=== PATIENT | male | born 1965 | race Caucasian/White ===

== ENCOUNTER → 2024-11-04 14:19 | Outpatient (REF) | payer OTHER, SELFPAY | LOC: MRI 3T 14:19 | PROVIDERS: ATTENDING PHYSICIAN Specialist; FAMILY PHYSICIAN Internal Medicine | DX: M54.16 Radiculopathy, lumbar region (principal) | CPT/HCPCS: 72148 ==

== ENCOUNTER 2025-02-02 05:58 | Outpatient (RCR) | payer OTHER, SELFPAY | END 2025-02-02 23:59 | disposition home or self-care (01) | LOC: RPT 05:58 | PROVIDERS: ATTENDING PHYSICIAN Physician Assistant; FAMILY PHYSICIAN Internal Medicine | DX: M54.16 Radiculopathy, lumbar region (principal); Z73.6 Limitation of activities due to disability | CPT/HCPCS: 97110; 97162 ==

== ENCOUNTER 2025-02-25 15:08 | Outpatient (RCR) | payer OTHER, SELFPAY | END 2025-02-25 23:59 | disposition home or self-care (01) | LOC: RPT 15:08 | PROVIDERS: ATTENDING PHYSICIAN Physician Assistant; FAMILY PHYSICIAN Internal Medicine | DX: M54.16 Radiculopathy, lumbar region (principal); Z73.6 Limitation of activities due to disability | CPT/HCPCS: 97110; 97140 ==

== ENCOUNTER 2025-03-10 15:06 | Outpatient (RCR) | payer OTHER, SELFPAY | END 2025-03-11 12:58 | disposition home or self-care (01) | LOC: RPT 15:06 | PROVIDERS: ATTENDING PHYSICIAN Physician Assistant; FAMILY PHYSICIAN Internal Medicine | DX: M54.16 Radiculopathy, lumbar region (principal); Z73.6 Limitation of activities due to disability | CPT/HCPCS: 97110; 97140 ==

== ENCOUNTER 2025-08-01 19:30 | Emergency (ER) | payer OTHER, SELFPAY ==
[2025-08-01] VITALS (8 sets, daily range): BP systolic 68–152; BP diastolic 53–98
[2025-08-01] MEDS: MOTRIN 600 MG PO (23:20)
[2025-08-02] VITALS: BP 121/89
--- NOTE | 2025-08-02 01:14 | ED.GENMED ---
History of Present Illness
General
Chief Complaint: Musculo-Skeletal Complaint
Source: patient
Exam Limitations: none
Time Seen by Provider: 08/01/25 22:24
Nursing documentation reviewed up to this point in time: agreed with
History of Present Illness
History of Present Illness:
Patient is a 59-year-old male who presents to the emergency department with left knee injury. Patient states he was walking down a few steps while at a wedding earlier this evening when he missed the final step and his left knee bent back
forcefully. He heard a 'pop'. He states that he immediately noticed a bulge just above his knee and was unable to bear weight. He had no pain initially however has since developed a tightness/pain sensation throughout his left thigh. Patient
states he is having difficulty with extension of his left knee and is unable to raise his left leg off the bed.
He denies any numbness/tingling in the left lower extremity. He denies any fall or impact on his knee.
He did not hit his head or sustain any other injuries. He is not on any oral anticoagulation.
Past History
Past History
ED Past Medical History: Other (HIV positive)
Social History
Tobacco: Non-smoker
Alcohol: None
Drug: None
Review of Systems
Review of Systems
Allergies reviewed?: Yes
All Other Systems: ROS reviewed and negative except as documented in HPI and ROS
Phy Exam
Physical Exam
Physical Exam:
Vitals: Hypertensive on arrival, otherwise vital signs stable. Afebrile
General: Patient is in no distress.
Skin: Warm and dry, no rashes or lesions
Head: Normocephalic, atraumatic
Throat: Protecting airway
Neck: Normal ROM, no cervical spine tenderness
Cardiac: Regular rate
Pulm: No apparent respiratory distress
Abdomen: Nondistended
Extremities: Palpable deformity of left quadriceps tendon just proximal to knee. Significant left knee joint effusion. Mild tenderness in left anterior thigh. Compartments soft. Normal sensation with palpable left DP and PT pulses. Capillary
refill WNL. No bony tenderness of left knee or left lower extremity. Limited complete extent of left knee and unable to perform straight leg raise on left side
Neuro: Grossly intact
Psychiatric: Normal affect.
Course
Orders/Labs/Results
Orders:
Orders
08/01/25 23:13
Ibuprofen [Motrin] 600 mg PO NOW STA
08/01/25 23:49
Crutches-Treatment ONCE
Knee Immobilizer Left-Treatmen ONCE
Vital Signs
Initial and Last Documented VS:
Initial Vital Signs
Temp Pulse Resp BP Pulse Ox
98.3 F 80 16 152/98 95
08/01/25 19:32 08/01/25 19:32 08/01/25 19:32 08/01/25 19:32 08/01/25 19:32
Last Documented Vital Signs
Temp Pulse Resp BP Pulse Ox
98.3 F 75 18 121/89 99
08/01/25 19:32 08/02/25 01:15 08/02/25 01:15 08/02/25 00:00 08/02/25 01:14
MDM/Problems Addressed
Differential Diagnosis Includes:
Not limited to: Quadriceps tendon rupture, quadriceps muscle strain/tear, joint effusion, patellar subluxation, ligamentous injury, etc.
MDM/Problems Addressed:
59-year-old male presenting with left knee injury during fall while left knee hyperextended. He has significant pain in left thigh, unable to bear weight. No head strike or other associated injuries. Patient hypertensive on arrival with otherwise
stable vital signs. On exam, he has palpable deformity of quadriceps tendon just proximal to left knee with joint effusion. Limited ability to extend at left knee and perform straight leg raise without assistance. No bony tenderness of left lower
extremity. No joint line tenderness of left knee. LLE neurovascularly intact. Compartments soft.
Impression is likely quadriceps tendon rupture. No evidence of bony injury. Do not feel x-ray imaging indicated. No evidence of neurovascular compromise. Patient given ice and Motrin.
Patient did have brief period of lightheadedness, hypotension, and diaphoresis�I suspect to be a vagal response. He did not lose consciousness. Symptoms and blood pressure improved almost immediately with water. He did not have any chest pain or
shortness of breath during this time.
Given suspected vagal event, patient was monitored in the ED. He has remained stable and well-appearing with normal blood pressures. Patient was placed in a knee immobilizer and provided crutches. Advised to continue ice, elevate, use crutches as
needed for ambulating. He will contact orthopedics on Sunday morning for further evaluation/management. Strict return precautions discussed including any intractable pain, numbness/tingling in affected extremity, or other concerns. Patient
comfortable with plan and stable for discharge home.
Chronic conditions affecting care:
N/A
Acute Exacerbation and/or Progression of Chronic Illness:
N/A
*Pulse Oximetry
SaO2: 99
Oxygen Mode of Delivery: Room air
Patient hypoxic: no
*EKG
Interpreted by ED Provider?: NA
*Proof Press Operator Interpretation
Rate: Proof Press Operator- N/A
*Critical Care Note
Total Time (30-74mins, 75-104mins- exclusive of procedures): Not Applicable
ED Attending Note
-
Portions of this chart may have been created with voice recognition software.� Occasional wrong word or��sound alike� substitutions may have occurred due to the inherent limitations of voice recognition software.
Discharge Plan
Departure
Patient Disposition: Home (Routine Discharge)
Date of Disposition: 08/02/25
Time of Disposition: 00:45
Patient with high blood pressure during this ER visit?: Yes
Condition: Good
Discharge Problem:
Rupture of left quadriceps tendon
Instructions: Quadriceps and Patellar Tendon Injuries, BLOOD PRESSURE
Prescriptions:
No Action
Acyclovir
200 mg PO DAILY
multivitamin 1 EACH tablet
1 ea PO DAILY
vitamin B complex 1 TAB tablet
500 mg PO DAILY
fluticasone propionate 1 SPRAY spray,suspension
2 spray intranasal DAILY
emtricitabine-tenofovir alafen [Descovy] 1 EACH tablet
1 ea PO HS
Sustiva:
600 mg PO HS
Vitamin D3:
2,000 units PO DAILY
mupirocin 1 APPLIC ointment
1 applic intranasal BID Qty: 1 0RF
Patient Comments:
started treatment sunday02/04/21 in evening and wa staking twice a day. last took at home 02/06/21 at 2000
sennosides [senna] 1 TABLET tablet
2 tab PO BID 0RF
aspirin 325 MG tablet
325 mg PO DAILY Qty: 28 0RF
Rx Instructions:
Take daily x4 weeks for blood clot prevention; then resume Aspirin 81 mg daily.
meloxicam 15 MG tablet
15 mg PO DAILY Qty: 30 0RF
Rx Instructions:
Take with food.
Do not take within 2 hours of Aspirin.
magnesium hydroxide 30 ML suspension
30 ml PO DAILYPRN PRN (Reason: constipation) 0RF
docusate sodium 100 MG capsule
100 mg PO BID 0RF
gabapentin 100 MG capsule
200 mg PO TID Qty: 30 0RF
oxycodone 5 MG tablet
5 mg PO Q4HPRN PRN (Reason: moderate-severe pain) Qty: 30 0RF
Rx Instructions:
1 tab moderate pain or 2 if pain severe
Dx total joint replacement
ongoing therapy
famotidine 20 MG tablet
20 mg PO HS Qty: 30 0RF
Rx Instructions:
Take nightly while on Meloxicam.
acetaminophen [Tylenol Arthritis] 650 MG tablet extended release
650 mg PO Q4HWA Qty: 30 0RF
Rx Instructions:
Do not exceed >4000 mg daily.
docosahexaenoic acid-epa 1 CAP capsule
1,000 mg PO DAILY Qty: 0 0RF
Rx Instructions:
Resume in 1 week.
Turmeric
500 mg PO DAILY Qty: 0 0RF
Rx Instructions:
Resume in 1 week.
Referrals:
Ricky Loera MD [Active, Orthopedics] - Call in 1-3 days for appt
Shannen Sun MD [Family Provider, Internal Medicine]
Stand Alone Forms: Return to Work
Activity Restrictions/Additional Instructions:
RETURN TO THE EMERGENCY DEPARTMENT WITH ANY INTRACTABLE PAIN, NUMBNESS/TINGLING IN LOWER EXTREMITY, SIGNIFICANT SWELLING OR BRUISING, WORSENING IN CURRENT SYMPTOMS, OR ANY OTHER CONCERNS
- I suspect you likely sustained an injury to your left quadriceps tendon. Please keep knee in immobilizer and use crutches as needed for weightbearing. Continue to ice and elevate your left leg. Take Tylenol and/or Motrin as needed for pain.
- Follow-up with orthopedics for further evaluation/management. You may require further imaging.
Monitor your symptoms closely and return to the emergency department with any acute worsening/new symptoms or any other concerns
Interventions
Interventions:
*Risk Screen - Suicide Last Done: 08/01/25 19:32
*General Assessment Last Done: 08/01/25 19:32
*Neglect/Abuse Screening Last Done: 08/01/25 19:32
*ED- Fall Risk Assessment Last Done: 08/01/25 22:14
*ED COVID-19 Vaccine History Last Done: 08/01/25 22:14
*ED Influenza Vaccine History Last Done: 08/01/25 22:14
*Nursing Disposition Last Done: 08/02/25 01:15
ED-Musculoskeletal Assessment Last Done: 08/01/25 20:32
Discharge Date and Time
Discharge Date/Time: 08/02/25 01:39
Print Language: UKRAINIAN
== END 2025-08-02 01:39 | disposition home or self-care (01) ==
LOC: EMR 19:30
PROVIDERS: EMERGENCY PHYSICIAN Student in an Organized Health Care Education/Training Program; FAMILY PHYSICIAN Internal Medicine
DX: S76.112A Strain of left quadriceps muscle, fascia and tendon, initial encounter (principal); X50.1XXA Overexertion from prolonged static or awkward postures, initial encounter; Y93.01 Activity, walking, marching and hiking; M25.462 Effusion, left knee; R03.0 Elevated blood-pressure reading, without diagnosis of hypertension; Z21 Asymptomatic human immunodeficiency virus [HIV] infection status
CPT/HCPCS: 99283; 29505

== ENCOUNTER → 2025-08-04 06:19 | Outpatient (REF) | payer OTHER, SELFPAY | LOC: RCS 06:19 | PROVIDERS: ATTENDING PHYSICIAN Orthopaedic Surgery Hand Surgery; FAMILY PHYSICIAN Internal Medicine | DX: Z01.818 Encounter for other preprocedural examination (principal) | CPT/HCPCS: 93005 ==

== ENCOUNTER → 2025-08-18 13:06 | Outpatient (REF) | payer OTHER, SELFPAY | LOC: RAD 13:06 | PROVIDERS: ATTENDING PHYSICIAN Physician Assistant Surgical; FAMILY PHYSICIAN Internal Medicine | DX: M79.662 Pain in left lower leg (principal); M79.605 Pain in left leg; M79.89 Other specified soft tissue disorders | CPT/HCPCS: 93971 ==

== ENCOUNTER 2025-10-07 06:29 | Outpatient (RCR) | payer OTHER, SELFPAY | END 2025-10-07 23:59 | disposition home or self-care (01) | LOC: RPT 06:29 | PROVIDERS: ATTENDING PHYSICIAN Physician Assistant Surgical; FAMILY PHYSICIAN Internal Medicine | DX: Z47.89 Encounter for other orthopedic aftercare (principal); S76.112D Strain of left quadriceps muscle, fascia and tendon, subsequent encounter; Z73.6 Limitation of activities due to disability; R26.89 Other abnormalities of gait and mobility; M54.16 Radiculopathy, lumbar region; M62.81 Muscle weakness (generalized); W10.8XXD Fall (on) (from) other stairs and steps, subsequent encounter | CPT/HCPCS: 97110; 97116; 97140; 97162; 97530; 97535 ==